=== PATIENT | male | born 1945 | race Hispanic/Latino ===

== ENCOUNTER 2019-09-02 10:31 | Emergency (ER) | payer MEDICARE ==
--- NOTE | 2019-09-02 11:45 | RAD ---
Exam: Chest 2 views HISTORY:Cough Comparison: 07/02/2018 FINDINGS: Compared to prior exam, no significant interval detrimental change. Persistent enlargement of cardiac silhouette and evidence of prior sternotomy, with redemonstration of left subclavian approach AICD. IMPRESSION: Stable exam.
== END 2019-09-02 12:07 | disposition home or self-care (01) ==
LOC: ERS 10:31
DX: J45.901 Unspecified asthma with (acute) exacerbation (principal); J06.9 Acute upper respiratory infection, unspecified; I10 Essential (primary) hypertension; Z79.899 Other long term (current) drug therapy; Z79.51 Long term (current) use of inhaled steroids; Z79.891 Long term (current) use of opiate analgesic
CPT/HCPCS: 71046; 87804; 93005; 94640; J7620